=== PATIENT | female | born 1990 | race Two or more races ===

== ENCOUNTER 2024-09-14 11:00 | Day surgery (SDC) | payer OTHER ==
[2024-09-13 13:36] VITALS: BP 104/74
[~2024-09-14] VITALS: Ht 162.6 cm; Wt 77.1 kg
[2024-09-14] MEDS ORDERED: GENTAMICIN SULFATE 40 MG/ML VIAL IR ONE (13:30)
[2024-09-14] MEDS ORDERED: CEFAZOLIN SODIUM 1,000 MG VIAL IV ONE ×2 (13:30)
[2024-09-14] MEDS ORDERED: POVIDONE-IODINE SCRUB 118 ML BOTT TOP ONE (13:30)
[2024-09-14] MEDS ORDERED: BUPIVACAINE HCL/PF 0.25% 30ML VIAL InF ONE (13:30)
[2024-09-14] MEDS ORDERED: CLINDAMYCIN PHOSPHATE 150 MG/ML (900mg) IV ONE (13:30)
[2024-09-14] MEDS ORDERED: POVIDONE-IODINE 118 ML BOTT TOP ONE (13:30)
[2024-09-14] MEDS ORDERED: CIPROFLOXACIN IN 5 % DEXTROSE 400 MG/200 ML PIGGYBAG IV ONE (14:15)
[2024-09-14] MEDS ORDERED: EPINEPHRINE HCL/PF 1 MG/ML AMPUL IR ONE (18:45)
== END 2024-09-14 20:45 | disposition home or self-care (01) ==
LOC: CIR.AMB 11:00
PROVIDERS: ATTEND Surgery
DX: D05.12 Intraductal carcinoma in situ of left breast (principal); N60.82 Other benign mammary dysplasias of left breast; R59.0 Localized enlarged lymph nodes; N65.0 Deformity of reconstructed breast; N64.81 Ptosis of breast; Z91.013 Allergy to seafood; Z88.0 Allergy status to penicillin

== ENCOUNTER 2024-09-21 16:08 | Emergency (ER) | payer OTHER ==
[~2024-09-21] VITALS: Ht 162.6 cm; Wt 77.1 kg
[2024-09-21] MEDS ORDERED: CLEOCIN HCL150 MG PO (19:50)
== END 2024-09-21 19:59 | disposition home or self-care (01) ==
LOC: ER 16:11
DX: L73.2 Hidradenitis suppurativa (principal); Z91.013 Allergy to seafood; Z88.0 Allergy status to penicillin; Z85.3 Personal history of malignant neoplasm of breast

== ENCOUNTER 2024-09-24 19:30 | Emergency (ER) | payer OTHER ==
[~2024-09-24] VITALS: Ht 162.6 cm; Wt 77.1 kg
[~2024-09-24 19:30] MED LIST: CLEOCIN HCL150 MG PO
[2024-09-24] MEDS ORDERED: KETOROLAC TROMETHAMINE 60 MG VIAL IM STA (21:35)
[2024-09-24] MEDS ORDERED: CLINDAMYCIN PHOSPHATE 150 MG/ML (600mg) IM STA (21:35)
[2024-09-24] MEDS ORDERED: FAMOtidine 10 MG/ML (4ML VIAL) IV PUSH STA (21:36)
[2024-09-24] MEDS ORDERED: HYOSCYAMINE SULFATE 0.125 MG TAB.SUBL SL ONE (21:45)
== END 2024-09-24 22:22 | disposition home or self-care (01) ==
LOC: ER 19:32
DX: L03.818 Cellulitis of other sites (principal); K29.70 Gastritis, unspecified, without bleeding; Z88.0 Allergy status to penicillin; Z91.013 Allergy to seafood